=== PATIENT | male | born 2000 | race Caucasian/White ===

== ENCOUNTER 2021-11-28 15:29 | Outpatient (CLI) | payer MEDICAID, SELFPAY ==
--- NOTE | 2021-11-28 16:00 | MR_ITS ---
WS: [id number] MRI HEAD WITH CONTRAST TECHNIQUE: Sagittal T1, T2 axial, T2 axial FLAIR, axial susceptibility weighted imaging, axial diffus ion weighted images, and coronal T2 images were obtained. Pre and post-T1 axial and post T1 coronal i mages. ADC and FSPGR images. CLINICAL INFORMATION: parathesia on left side, headaches COMPARISON: None. FINDINGS: Some images degraded by susceptibility artifact from permanent retainer. No evidence of restricted diffusion to suggest acute ischemia. No suspicious intracranial signal abnormalities. Mild parenchymal volume loss. Normal posterior fossa . Normal vascular flow voids at the skull base. No extra-axial fluid collections. No evidence of mass or mass effect. Paranasal sinuses and mastoid air cells are well aerated. No hemosiderin on susceptibly weighted images. Normal optic chiasm and pituitary infundibulum. Normal cavernous sinuses and Meckel's cave. Incidental magna cisterna magna. No abnormal gadolinium enhance ment. Normal dural venous sinuses. MR/MR head wo/w con [id number] IMPRESSION: 1. No evidence of restricted diffusion to suggest acute ischemia. 2. No suspicious intracranial signal abnormalities. 3. Mild parenchymal volume loss. 4. No hemosiderin on the susceptibly weighted images. 5. No abnormal gadolinium enhancement. 6. No other acute findings.
[2021-11-28] MEDS: gadobenate dimeglumine 20 mL vial IV (16:25)
== END 2021-11-28 15:30 | disposition home or self-care (01) ==
PROVIDERS: PCP Family Medicine; Visit Provider Family Medicine
DX: R20.2 Paresthesia of skin (principal); R51.9 Headache, unspecified; R42 Dizziness and giddiness
CPT/HCPCS: 70553

== ENCOUNTER 2021-12-09 06:00 | Outpatient (CLI) | payer MEDICAID, SELFPAY | END 2021-12-09 23:00 | disposition home or self-care (01) | LOC: RAD 01-30 13:04 | PROVIDERS: PCP Family Medicine; Visit Provider Family Medicine | DX: R04.2 Hemoptysis (principal); R59.1 Generalized enlarged lymph nodes; R20.2 Paresthesia of skin; R51.9 Headache, unspecified; J45.909 Unspecified asthma, uncomplicated | CPT/HCPCS: 80053; 85025; 85651; 86140 ==

== ENCOUNTER → 2021-12-22 14:54 | Outpatient (BNVA) | payer MEDICAID, SELFPAY | PROVIDERS: PCP Family Medicine; Visit Provider Family Medicine | DX: Z11.3 Encounter for screening for infections with a predominantly sexual mode of transmission (principal) | CPT/HCPCS: 86592; 86803; 87340; 87389 ==